=== PATIENT | female | born 1965 ===

== ENCOUNTER 2017-07-19 22:31 | Emergency (ER) | payer MEDICAID, OTHER ==
[2017-07-19 22:31] VITALS: BMI 23.0
[2017-07-19 22:42] VITALS: TEMP 97.9
[2017-07-19] MEDS ORDERED: Morphine 4 MG/ML VIAL ONE (23:43)
[2017-07-19 23:49] LABS: HCG,QUALITATIVE URINE NEGATIVE (NEGATIVE)
[2017-07-19 23:50] LABS: SQUAMOUS EPITHIAL 3 /hpf (0-5); URINE BACTERIA RARE (<OCC); URINE BILIRUBIN NEGATIVE (NEGATIVE); URINE BLOOD NEGATIVE (NEGATIVE); URINE CLARITY Clear (Clear); URINE COLOR Colorless (YELLOW); URINE GLUCOSE (UA) 2+ mg/dL (Normal); URINE PROTEIN NEGATIVE (NEGATIVE); URINE UROBILINOGEN NORMAL mg/dL (0.2-1.0)
[2017-07-19 23:51] LABS: URINE LEUKOCYTE ESTERASE NEGATIVE Leu/uL (Negative)
[2017-07-19 23:58] LABS: BASO % 0.4 % (0.0-2.0); EOS # 0.1 K/uL (0.0-0.7); EOS % 1.8 % (0.0-4.0); HEMOGLOBIN 12.9 g/dL (11.0-16.0); LYMPH % 33.5 % (20.0-40.0); MEAN CORPUSCULAR HEMOGLOBIN 28.2 pg (27.0-31.0); MEAN CORPUSCULAR HGB CONC 35.1 g/dL (33.0-37.0); MONO # 0.4 K/uL (0.0-0.8); MONO % 7.2 % (0.0-10.0); NEUT # 3.4 K/uL (1.8-7.0); NEUT % 57.1 % (50.0-75.0); RBC 4.58 Mil/uL (3.80-5.20); WHITE BLOOD COUNT 5.9 K/uL (4.8-10.8)
[2017-07-20] LABS: MEAN CELL VOLUME 80.4 fL (81.0-99.0)
[2017-07-20 00:10] LABS: INR 0.9; PARTIAL THROMBOPLASTIN TIME 30 SECONDS (21-34); PROTHROMBIN TIME 10.5 SECONDS (9.7-12.2)
[2017-07-20 00:14] LABS: D DIMER < 200 ng/mlDDU (0-243)
[2017-07-20 00:26] LABS: ALB/GLOB RATIO 1.1 (1.0-2.1); ALBUMIN 4.4 g/dL (3.5-5.0); ALT/SGPT 23 U/L (9-52); AST/SGOT 28 U/L (14-36); BLOOD UREA NITROGEN 12 mg/dL (7-17); CALCIUM 9.2 mg/dl (8.6-10.4); GFR AFRICAN-AMERICAN > 60; GFR NON-AFRICAN AMERICAN > 60
[2017-07-20 00:38] LABS: CK-MB 0.58 ng/mL (0.0-3.38)
[2017-07-20] MEDS ORDERED: Potassium Chloride 20 mEq ER Tab PO STA (00:44)
--- NOTE | 2017-07-20 00:47 | C.PDOC ---
History Of Present Illness Patient presents to ED c/o intermittent left sided chest pain for the past 3 days. Pain is sharp and nonradiating, not associated with SOB, cough, fever, abdominal pain, nausea/vomiting/diarrhea. Patient also c/o left leg/thigh pain. PMHx of DM II, hypothyroidism, HTN, hyperlipidemia. Time Seen by Provider: 07/19/17 22:48 Chief Complaint (Nursing): Chest Pain History Per: Patient History/Exam Limitations: no limitations Onset/Duration Of Symptoms: Days (3) Severity: Moderate Quality: "Pain" Past Medical History Reviewed: Historical Data, Nursing Documentation, Vital Signs Vital Signs: Last Vital Signs Temp 97.9 F 07/20/17 02:08 Pulse 69 07/20/17 02:08 Resp 18 07/20/17 02:08 BP 160/85 H 07/20/17 02:08 Pulse Ox 100 07/20/17 02:08 - Medical History PMH: Diabetes, Graves' Disease, HTN, Hypercholesterolemia, Hypothyroidism Family History: States: No Known Family Hx - Social History Hx Tobacco Use: No Hx Alcohol Use: No Hx Substance Use: No - Immunization History Hx Tetanus Toxoid Vaccination: No Hx Influenza Vaccination: No Hx Pneumococcal Vaccination: No Review Of Systems Except As Marked, All Systems Reviewed And Found Negative. Constitutional: Negative for: Fever, Chills Cardiovascular: Positive for: Chest Pain. Negative for: Palpitations Respiratory: Negative for: Cough, Shortness of Breath Gastrointestinal: Negative for: Nausea, Vomiting, Abdominal Pain, Diarrhea Skin: Negative for: Rash Physical Exam - Physical Exam Appears: Well, Non-toxic, In Acute Distress (in mild pain, tearful ) Skin: Normal Color, Warm, Dry, No Rash Oral Mucosa: Moist Chest: Symmetrical, No Tenderness Cardiovascular: Rhythm Regular, No Murmur Respiratory: Normal Breath Sounds, No Accessory Muscle Use, No Rales, No Rhonchi , No Wheezing Gastrointestinal/Abdominal: Normal Exam, Bowel Sounds, Soft, No Tenderness Extremity: Normal ROM, No Pedal Edema, No Calf Tenderness, No Swelling, Other ( left thigh mild diffuse TTP) Pulses: Left Dorsalis Pedis: Normal, Right Dorsalis Pedis: Normal Neurological/Psych: Oriented x3 ED Course And Treatment - Laboratory Results Result Diagrams: 07/19/17 23:55 07/19/17 23:55 ECG: Interpreted By Me, Viewed By Me (sinus tachycardia 102 bpm, normal axis, no acute ST/T wave changes) ECG Interpretation: Abnormal (tachycardic ) O2 Sat by Pulse Oximetry: 98 (RA) Pulse Ox Interpretation: Normal - Radiology CXR: Interpreted by Me, Viewed By Me CXR Interpretation: Yes: No Acute Disease. No: Infiltrates Progress Note: Blood work, EKG, CXR ordered and reviewed. Patient given PO ASA, IV morphine, PO KDur. Reevaluation Time: 01:50 Reassessment Condition: Improved (On reassessment, patient is resting comfortably and states she feels much better. Recommended patient be admitted for further evaluation of chest pain, however patient does not want to stay and has decided to sign out against my medical advice. She understands that by doing so, she risks worsening of her current condition, IA, or possible even . Patient instructed to follow up with PMD/clinic in 1-2 days, and she understands she should return to ED if symptoms worsen.) Disposition Counseled Patient/Family Regarding: Studies Performed, Diagnosis, Need For Followup - Disposition Referrals: [facility] [Outside] Disposition: AGAINST MEDICAL ADVICE Disposition Time: 01:50 Condition: STABLE Additional Instructions: FOLLOW UP WITH YOUR DOCTOR/CLINIC IN 1-2 DAYS RETURN TO EMERGENCY ROOM IMMEDIATELY IF SYMPTOMS RETURN SEGUIMIENTO CON MARSHALL MDICO / CLNICA EN 1-2 TEJEDA REGRESE AL MONA DE EMERGENCIA INMEDIATAMENTE SI LOS SNTOMAS REGRESA Instructions: Chest Pain (DC), Leaving Against Medical Advice Forms: [employer] (Lebanese), (AMA) Informed Refusal Print Language: BULGARIAN - POA Present On Arrival: None - Clinical Impression Clinical Impression: Chest pain, Left against medical advice
[2017-07-20] MEDS ORDERED: Potassium Chloride 20 mEq ER Tab PO ONE (00:49)
[2017-07-20 02:09] VITALS: BP 160/85; PULSE 69; RESP 18
--- NOTE | 2017-07-20 07:08 | RAD ---
Chest x-ray single frontal view History: Chest pain Comparison: 12/03/2015 Findings: No focal infiltrate or effusion. Heart size within normal limits. Biapical pleural thickening with upper lobe granulomatous changes. Impression: No focal infiltrate or effusion.
--- NOTE | 2017-07-25 14:48 | CARD ---
APPROVED REPORT EKG Measurement Heart [id number] <Conclusion> Sinus tachycardia Otherwise normal ECG
[2017-07-26 18:22] VITALS: O2SAT 98
== END 2017-07-20 02:09 | disposition left against medical advice (07) ==
LOC: C.ER 22:31
DX: R07.9 Chest pain, unspecified (principal); E11.9 Type 2 diabetes mellitus without complications; I10 Essential (primary) hypertension; E78.00 Pure hypercholesterolemia, unspecified
CPT/HCPCS: 71045; 80053; 81001; 82550; 82553; 82948; 84443; 84484; 84703; 85025; 85378; 85610; 85730; 93005; 96374; 99285; J2270

== ENCOUNTER 2017-09-12 11:27 | Emergency (ER) | payer MEDICAID, OTHER ==
[2017-09-12 11:27] VITALS: BMI 28.5
[2017-09-12 11:45] VITALS: RESP 18; TEMP 98.4
--- NOTE | 2017-09-12 12:36 | C.PDOC ---
History Of Present Illness 52 y/o female presents to the ED complaining of suprapubic pain for 3 days. Pain is radiating to her lower back. She denies any fevers, dysuria, hematuria, vomiting, or diarrhea. Time Seen by Provider: 09/12/17 11:51 Chief Complaint (Nursing): Abdominal Pain History Per: Patient History/Exam Limitations: no limitations Onset/Duration Of Symptoms: Days Current Symptoms Are (Timing): Still Present Location Of Pain/Discomfort: Suprapubic Radiation Of Pain To:: Back (paralumbar) Past Medical History Reviewed: Historical Data, Nursing Documentation, Vital Signs Vital Signs: Last Vital Signs Temp 98.4 F 09/12/17 11:41 Pulse 75 09/12/17 13:34 Resp 18 09/12/17 13:34 BP 126/81 09/12/17 13:34 Pulse Ox 100 09/12/17 17:20 - Medical History PMH: Diabetes, Graves' Disease, HTN, Hypercholesterolemia, Hypothyroidism Denies: Chronic Kidney Disease Family History: States: Unknown Family Hx - Social History Hx Tobacco Use: No Hx Alcohol Use: No Hx Substance Use: No - Immunization History Hx Tetanus Toxoid Vaccination: No Hx Influenza Vaccination: No Hx Pneumococcal Vaccination: No Review Of Systems Except As Marked, All Systems Reviewed And Found Negative. Constitutional: Negative for: Fever, Chills Gastrointestinal: Positive for: Abdominal Pain (suprapubic). Negative for: Vomiting, Diarrhea Genitourinary: Negative for: Dysuria, Frequency, Incontinence, Hematuria Musculoskeletal: Positive for: Back Pain Physical Exam - Physical Exam Appears: Non-toxic, No Acute Distress Skin: Warm, Dry Head: Atraumatic, Normacephalic Eye(s): bilateral: Normal Inspection, PERRL, EOMI Oral Mucosa: Moist Neck: Normal ROM, Supple Chest: Symmetrical Cardiovascular: Rhythm Regular, No Murmur Respiratory: Normal Breath Sounds, No Rales, No Rhonchi, No Wheezing Gastrointestinal/Abdominal: Soft, No Tenderness, No Guarding, No Rebound Back: No Vertebral Tenderness, Paraspinal Tenderness (mild paralumbar tenderness ) Extremity: Bilateral: Atraumatic, Normal Color And Temperature, Normal ROM Pulses: Left Dorsalis Pedis: Normal, Right Dorsalis Pedis: Normal Neurological/Psych: Oriented x3, Normal Speech, Normal Motor, Normal Sensation, Other (No focal deficits) Gait: Steady ED Course And Treatment - Laboratory Results Urine POC: Negative O2 Sat by Pulse Oximetry: 100 (RA) Pulse Ox Interpretation: Normal Progress Note: Treated with macrobid 100 mg PO. On re-evaluation abdomen soft. Discharged in stable condition, advised to return to ED if any increase symptoms Reassessment Condition: Improved Medical Decision Making Medical Decision Making: Impression: 52 y/o F with suprapubic and low back pain Initial Plan: --Urine HCG --Urinalysis --Urine culture Urine is indicative of UTI. Patient started on Macrobid. Disposition Counseled Patient/Family Regarding: Studies Performed, Diagnosis, Need For Followup, Rx Given - Disposition Referrals: [facility] [Outside] [facility] [Outside] Disposition: HOME/ ROUTINE Disposition Time: 13:20 Condition: STABLE Additional Instructions: Follow up with clinic or PMD for further evaluation Return to ED if any increase symptoms Prescriptions: Nitrofurantoin Macrocrystals [Macrobid] 1 cap PO BID #14 cap Instructions: Urinary Tract Infection, Adult (DC) Forms: [employer] (Estonian) Print Language: BHUTANESE - POA Present On Arrival: None - Clinical Impression Clinical Impression: UTI (urinary tract infection) - PA / SKIDDER LEVER OPERATOR / Resident Statement MD/DO has reviewed & agrees with the documentation as recorded. - Scribe Statement The provider has reviewed the documentation as recorded by the Scribe (Olive Brown) All medical record entries made by the Scribe were at my direction and personally dictated by me. I have reviewed the chart and agree that the record accurately reflects my personal performance of the history, physical exam, medical decision making, and the department course for this patient. I have also personally directed, reviewed, and agree with the discharge instructions and disposition.
[2017-09-12 12:51] LABS: HCG,QUALITATIVE URINE NEGATIVE (NEGATIVE)
[2017-09-12 12:57] LABS: SQUAMOUS EPITHIAL < 1 /hpf (0-5); URINE BACTERIA OCC (<OCC); URINE BILIRUBIN NEGATIVE (NEGATIVE); URINE BLOOD 2+ (NEGATIVE); URINE CLARITY Hazy (Clear); URINE COLOR Yellow (YELLOW); URINE GLUCOSE (UA) NORMAL (Normal); URINE LEUKOCYTE ESTERASE 2+ Leu/uL (Negative); URINE PROTEIN 2+ mg/dL (NEGATIVE); URINE UROBILINOGEN NORMAL mg/dL (0.2-1.0)
[2017-09-12 13:36] VITALS: BP 126/81; PULSE 75
[2017-09-12 17:20] VITALS: O2SAT 100
== END 2017-09-12 13:35 | disposition home or self-care (01) ==
LOC: C.ER 11:27
DX: N39.0 Urinary tract infection, site not specified (principal); I10 Essential (primary) hypertension; E11.9 Type 2 diabetes mellitus without complications; E78.00 Pure hypercholesterolemia, unspecified

== ENCOUNTER 2018-07-22 10:45 | Outpatient (CLI) | payer MEDICAID | END 2018-08-28 10:05 | disposition home or self-care (01) | LOC: C.MRIC 10:45 ==